=== PATIENT | female | born 1995 | race Hispanic/Latino ===

== ENCOUNTER 2024-03-04 18:04 | Emergency (ER) | payer OTHER, SELFPAY ==
[2024-03-04 18:08] VITALS: BP 112/83
[2024-03-04 18:26] LABS: % Basophils 0.8 % (0-2); % Eosinophils 4.7 % (0-6); % Immature Granulocytes 0.3 % (0-0.5); % Lymphocytes 34.2 % (20.5-51.1); % Monocytes 5.1 % (1.7-9.3); % Neutrophils 54.9 % (42.2-75.2); Absolute Basophils 0.1 10^3/uL (0-0.2); Absolute Eosinophils 0.5 10^3/uL (0-0.7); Absolute Lymphocytes 3.8 10^3/uL (1.2-3.4); Absolute Monocytes 0.6 10^3/uL (0.1-0.6); Absolute Neutrophils 6.1 10^3/uL (1.4-6.5); Hematocrit 39.1 % (37.0-47.0); Hemoglobin 13.7 g/dL (12.0-16.0); Mean Corpuscular Hgb 29.2 pg (27.0-31.0); Mean Corpuscular Volume 83.4 fL (81.0-99.0); Nucleated Red Blood Cells % 0 %; Platelet Count 393 10^3/uL (130-400); Red Blood Cell Count 4.69 10^6/uL (4.20-5.40); Red Cell Dist. Width 12.1 % (11.5-14.5); White Blood Cell Count 11.1 10^3/uL (4.8-10.8)
[2024-03-04 18:41] LABS: ALT (SGPT) 27 U/L (0-35); AST (SGOT) 26 U/L (14-36); Albumin 4.7 g/dl (3.5-5.0); Alkaline Phosphatase 104 U/L (38-126); Blood Urea Nitrogen 12 mg/dl (7-17); Calcium 10.1 mg/dl (8.4-10.2); Carbon Dioxide 23 mmol/L (22-30); Chloride 100 mmol/L (98-107); Glucose 102 mg/dl (70-99); Potassium 3.5 mmol/L (3.5-5.1); Sodium 141 mmol/L (135-145); Total Bilirubin 1.4 mg/dl (0.2-1.3); eGFR > 60.00
[2024-03-04 18:51] LABS: Troponin I < 0.012 ng/ml
--- NOTE | 2024-03-04 20:36 | EDRN ---
injury or fall. No SOB. Pt has hx of asthma. Pt took no pain relievers
[2024-03-04 20:43] VITALS: BP 113/72
[2024-03-04 21:00] VITALS: BP 102/70
--- NOTE | 2024-03-04 21:42 | ED.GENMED ---
History of Present Illness
General
Chief Complaint: Chest Problem
Source: patient
Exam Limitations: none
Time Seen by Provider: 03/04/24 20:54
History of Present Illness
History of Present Illness:
This is a 28 year old female that comes in with c/o left sided rib pain. States that 2 weeks ago she started with this left sided chest pain with breathing. States that she thought this was her asthma and in a couple of days she felt better. Then
Monday night she started with this left sided lower rib pain. States that it feels like a burning under her breast. States that today she went to and they felt this could be Shingles. Denies any falls or injury. States that she is SOB. Denies
fever, chills, chest pain, abd pain, nausea, vomiting, diarrhea, headache, dizziness, urinary burning.
Past History
Past History
ED Past Medical History: Asthma, GERD, Other and Other (Asthma, mild glucose intolerance)
ED Past Surgical History: None and Other (Hernia, Adenoidectomy, Oral surgery)
Social History
Tobacco: Non-smoker
Alcohol: None
Living: with family
Family History
Family History: Other (Diabetes in her grandmother, mother with thyroid disease)
Review of Systems
Review of Systems
All Other Systems: ROS reviewed and negative except as documented in HPI and ROS
Constitutional: Reports no symptoms; Denies fever or chills
EENT: Reports no symptoms
Respiratory: Reports trouble breathing and other (Left lower rib burning. ); Denies cough
Cardiac: Reports no symptoms; Denies chest pain
ABD/GI: Reports no symptoms; Denies abdominal pain, nausea, vomiting or diarrhea
: Reports no symptoms; Denies dysuria, frequency or urgency
Musculoskeletal: Reports no symptoms
Skin: Reports no symptoms
Neurological: Reports no symptoms; Denies dizzy or headache
Psychiatric: Reports no symptoms
Phy Exam
General Physical Exam
General Presentation: well appearing and no apparent distress
General age: appears stated age
General Skin: warm and dry
General Habitus: normal
General Mental: alert
General Hydration: appears well hydrated
ENT Exam
ENT Exam: TM's normal, pharynx normal and neck supple
Eye Exam
Eye Exam: EOMI
Cardiovascular Exam
Cardiovascular Exam: regular rate/rhythm, no edema, no murmur and normal peripheral pulses
Pulmonary Exam
Pulmonary Exam: lungs clear, no respiratory distress, no rales, chest non tender, no crackles, no rhonchi, no wheezing and no cough
Gastrointestinal Exam
Gastrointestinal Exam: normal bowel sounds, non tender, soft, no organomegaly, no pulsatile mass and non distended
Musculoskeletal Exam
Musculoskeletal Exam: full ROM, no edema and other (Left lower rib tenderness with palpation)
Skin Exam
Skin Exam: normal color, warm/dry, no rash and no petechia
Psychiatric Exam
Psychiatric Exam: normal mood/affect
Course
Orders/Labs/Results
Orders:
Orders
03/04/24 18:12
ECG [Electrocardiogram (*1)] Urgent
Reason for Study: Chest Pain
EKG- Treatment ONCE
03/04/24 18:17
Complete Blood Count/With Diff Urgent
Comprehensive Metabolic Panel Urgent
Troponin I Urgent
03/04/24 21:42
CR Chest - 2 Views Urgent
Comment:
Reason For Exam: lEFT SIDED RIB PAIN
03/04/24 22:50
D-Dimer Urgent
Abnormal Lab Results
03/04/24
18:17
WBC 11.1 H 10^3/uL
(4.8-10.8)
Absolute Lymphs (auto) 3.8 H 10^3/uL
(1.2-3.4)
Glucose 102 H mg/dl
(70-99)
Total Bilirubin 1.4 H mg/dl
(0.2-1.3)
03/04/24 18:17
03/04/24 18:17
WBC slightly elevated. Glucose nonfasting. Total miryam very slightly elevated. Troponin <0.012
D-dimer 0.37
Vital Signs
Initial and Last Documented VS:
Initial Vital Signs
Temp Pulse Resp BP Pulse Ox
98.4 F 96 16 112/83 98
03/04/24 18:08 03/04/24 18:08 03/04/24 18:08 03/04/24 18:08 03/04/24 18:08
Last Documented Vital Signs
Temp Pulse Resp BP Pulse Ox
98.4 F 96 16 112/83 98
03/04/24 18:08 03/04/24 18:08 03/04/24 18:08 03/04/24 18:08 03/04/24 20:33
MDM/Problems Addressed
Differential Diagnosis Includes:
Shingles, coronary syndrome.
MDM/Problems Addressed:
This is a 28 year old female that comes in with c/o left rib pain. States that this is a burning. Patient went to and was told that this may be shingles.
Will get labs. Chest x-ray. Explained to patient that at this time there is no rash there but she is tender with palpation. Sometimes you get the pain before the rash appears. Patient will need to follow up with the family doctor.
back into see patient. Explained that her Chest x-ray is normal along with the D-dimer. This may be just Musculoskeletal . Patient to use Tylenol or Ibuprofen for pain. Follow up with the family doctor. Return with any concerns.
Chronic conditions affecting care:
NA
Acute Exacerbation and/or Progression of Chronic Illness:
NA
*Radiology
Radiology exam reviewed: preliminary read by ED provider (Chest-Negative for active disease)
*Pulse Oximetry
Patient hypoxic: no
*EKG
Interpreted by ED Provider?: Yes
Heart Rate: 95
Rate: normal
Rhythm: sinus
[place]: normal axis
Interval: normal interval
QRS Pattern: normal QRS
Ischemia: no ischemia
*Electronics Manufacturer Interpretation
Rate: normal
Heart Rate: 86
Rhythm: sinus
*Critical Care Note
Total Time (30-74mins, 75-104mins- exclusive of procedures): Not Applicable
ED Attending Note
-
Portions of this chart may have been created with voice recognition software.� Occasional wrong word or��sound alike� substitutions may have occurred due to the inherent limitations of voice recognition software.
Discharge Plan
Departure
Patient Disposition: Home (Routine Discharge)
Date of Disposition: 03/05/24
Time of Disposition: 00:14
Patient with high blood pressure during this ER visit?: No
Condition: Good
Covid-19: Not Applicable
Discharge Problem:
Rib pain on left side
Instructions: Musculoskeletal Pain
Prescriptions:
No Action
metformin 500 MG tablet
250 mg PO DAILY
Referrals:
Juarez Lo DO [Family Provider] - Call in 1-3 days for appt
Activity Restrictions/Additional Instructions:
As discussed, your chest x-ray is normal and the D-dimer which is marker for Pulmonary embolism is negative. This may be musculoskeletal pain. However, if you would develop any rash you will need to see the family doctor or return to the emergency
room. You may take Tylenol 1000mg every 6 hours for pain and alternate this with Ibuprofen 600mg every 6 hours with food. Follow up with the family doctor for recheck. IF YOU HAVE INCREASED OR CHANGING PAIN, OR YOU HAVE ANY OTHER CONCERNS PLEASE
RETURN TO THE EMERGENCY ROOM.
Interventions
Interventions:
*Risk Screen - Suicide Last Done: 03/04/24 20:33
*General Assessment Last Done: 03/04/24 20:33
*Neglect/Abuse Screening Last Done: 03/04/24 20:33
ED- Fall Risk Assessment Last Done: 09/09/24 20:33
*ED COVID-19 Vaccine History Last Done: 03/04/24 20:33
ED- Cardiac Assessment Last Done: 03/04/24 20:33
ED- Pulmonary Assessment Last Done: 03/04/24 20:33
Discharge Date and Time
Print Language: ALBANIAN
[2024-03-04 22:00] VITALS: BP 109/64
[2024-03-04 23:11] LABS: D-Dimer 0.37 ug/mlFEU (0.00-0.50)
[2024-03-05 00:25] VITALS: BP 115/71
== END 2024-03-05 00:25 | disposition home or self-care (01) ==
LOC: EMR 18:04
PROVIDERS: Clinical Nurse Specialist Family Health; Student in an Organized Health Care Education/Training Program; EMERGENCY PHYSICIAN Student in an Organized Health Care Education/Training Program; FAMILY PHYSICIAN Anesthesiology
DX: R07.81 Pleurodynia (principal); J45.909 Unspecified asthma, uncomplicated; K21.9 Gastro-esophageal reflux disease without esophagitis; E74.39 Other disorders of intestinal carbohydrate absorption; Z88.8 Allergy status to other drugs, medicaments and biological substances
CPT/HCPCS: 99283; 71046; 80053; 84484; 85025; 85379; 93005

== ENCOUNTER 2025-01-01 18:54 | Emergency (ER) | payer BC, SELFPAY ==
[2025-01-01 18:58] VITALS: BP 144/84
[2025-01-01 19:45] LABS: Urine Character Clear (Clear)
[2025-01-01 19:50] LABS: Hematocrit 40.4 % (37.0-47.0); Hemoglobin 14.1 g/dL (12.0-16.0); Mean Corp Hgb Conc. 34.9 g/dL (33.0-37.0); Mean Corpuscular Volume 83.5 fL (81.0-99.0); Nucleated Red Blood Cells % 0 %; Platelet Count 325 10^3/uL (130-400); Red Cell Dist. Width 11.9 % (11.5-14.5)
[2025-01-01 20:04] LABS: ALT (SGPT) 43 U/L (0-35); AST (SGOT) 37 U/L (14-36); Albumin 5.0 g/dl (3.5-5.0); Alkaline Phosphatase 94 U/L (38-126); Blood Urea Nitrogen 16 mg/dl (7-17); Calcium 10.1 mg/dl (8.4-10.2); Carbon Dioxide 25 mmol/L (22-30); Chloride 103 mmol/L (98-107); Glucose 92 mg/dl (70-99); Potassium 4.0 mmol/L (3.5-5.1); Sodium 136 mmol/L (135-145); Total Protein 8.5 g/dl (6.3-8.2); eGFR > 60.00
[2025-01-01 20:05] LABS: HCG, Serum Qualitative Screen Negative
[2025-01-01 21:37] VITALS: BP 122/80
[2025-01-01 22:29] VITALS: BP 117/72
[2025-01-01 22:33] VITALS: BP 117/72
[2025-01-01 23:56] VITALS: BP 116/70; BP 123/84; BP 126/80; PULSE 69; PULSE 79; PULSE 90
--- NOTE | 2025-01-02 00:01 | ED.GENMED ---
History of Present Illness
General
Chief Complaint: Dizziness
Source: patient
Exam Limitations: none
Time Seen by Provider: 01/01/25 23:40
Nursing documentation reviewed up to this point in time: agreed with
History of Present Illness
History of Present Illness:
see MDM
Past History
Past History
ED Past Medical History: Asthma, GERD, Other and Other (Asthma, mild glucose intolerance)
ED Past Surgical History: None and Other (Hernia, Adenoidectomy, Oral surgery)
Social History
Tobacco: Non-smoker
Alcohol: None
Living: with family
Family History
Family History: Other (Diabetes in her grandmother, mother with thyroid disease)
Review of Systems
Review of Systems
Allergies reviewed?: Yes
All Other Systems: Not applicable
Phy Exam
Physical Exam
Physical Exam:
GENERAL: Alert , in no apparent distress, very well appearing
HEAD: NCAT
EYE: pupils equal and reactive, no nystagmus, no photophobia
NECK: Supple,full rom, nontender
ENT: o/p clr, mmm.
CARDIAC: Regular rate and rhythm . no edema
LUNGS: Clear breath sounds bilaterally, no acute respiratory distress, no wheezes/rales/rhonchi
ABDOMEN: Soft, without focal tenderness, no r/g, no cvat
NEUROLOGICAL: Alert and orientedx 4, cn intact, no facial asymmetry, 5/5 strength in UE/LE, sensation intact, romberg neg, ambulates without assistance, neg pronator drift
SKIN: Warm and dry, skin intact.
MUSCULOSKELETAL: No edema, well perfused.
PSYCH: Normal and appropriate interaction.
Course
Orders/Labs/Results
Orders:
Orders
01/01/25 19:06
ECG [Electrocardiogram (*1)] Urgent
Reason for Study: Vertigo / Dizzy
Cardiology Consult: Unknown
01/01/25 19:07
EKG- Treatment ONCE
Test Result ONCE
01/01/25 19:10
CT Head & Neck Angio W/wo IV Urgent
Comment:
Reason For Exam: dizzy, left facial tingling, no period since october
01/01/25 19:33
Complete Blood Count/With Diff Urgent
Comprehensive Metabolic Panel Urgent
HCG, Serum Qualitative Screen Urgent
Urinalysis Reflex To Culture Urgent
Date Specimen was Collected: 01/01/25
Time Specimen was Collected: 19:07
01/01/25 23:56
Orthostatic VS- Treatment ONCE
COVID-19 Antigen Urgent
Source: Nasal Swab
01/02/25 00:51
Meclizine [Antivert] 25 mg PO NOW STA
Abnormal Lab Results
01/01/25
19:33
WBC 11.6 H 10^3/uL
(4.8-10.8)
Absolute Lymphs (auto) 4.1 H 10^3/uL
(1.2-3.4)
Absolute Monos (auto) 0.8 H 10^3/uL
(0.1-0.6)
AST 37 H U/L
(14-36)
ALT 43 H U/L
(0-35)
Total Protein 8.5 H g/dl
(6.3-8.2)
01/01/25 19:33
01/01/25 19:33
Vital Signs
Initial and Last Documented VS:
Initial Vital Signs
Temp Pulse Resp BP Pulse Ox
37.2 C 94 20 144/84 100
01/01/25 18:58 01/01/25 18:58 01/01/25 18:58 01/01/25 18:58 01/01/25 18:58
Last Documented Vital Signs
Temp Pulse Resp BP Pulse Ox
36.6 C 80 18 103/63 96
01/01/25 21:37 01/01/25 22:33 01/01/25 22:33 01/02/25 00:58 01/02/25 00:05
MDM/Problems Addressed
Differential Diagnosis Includes:
see MDM
MDM/Problems Addressed:
Note:
CHIEF COMPLAINT(S)
Dizziness and menstrual irregularity.
HISTORY OF PRESENT ILLNESS
The patient is a 29-year-old female who presents with dizziness, particularly notable when changing the position of her head x 2 days, and an absence of menstrual cycles since October. The symptoms are most pronounced with activities such as going down
to pick something up, putting her head down, or turning her head. The patient has not experienced vertigo before. She reports a headache on Monday which was mild; took tylenol.
then las tnight while in bed she 'thinks' she felt some tingling in her L face (cheek) and R head. it was brief and resolved and hasn't recurred.
went to and was sent here due to those symptoms
has not taken a COVID test and has no known contact with sick individuals. Nausea occurs with dizziness, which she characterizes as positional. She denies any regular use of control and mentions using a negative test recently. There
is a past use of Metformin and Ozempic due to early diabetes, but the patient is currently not on medication.
PHYSICAL EXAM
- Neurological examination is focused on assessment for vertigo.
- The Tatianna-Hallpike maneuver was conducted with a subsequent report of dizziness during the test but no immediate nystagmus was noted.
- Strength was tested: the patient was able to hold arms up against resistance, shrug shoulders, and perform tasks with coordination.
- Nursing notes reviewed and vital signs reviewed.
PROBLEM LIST
- Acute dizziness
- Menstrual irregularity
PLAN
- Await the results of a computed tomography scan and review once available.
- The blood work results are normal.
- Prescribe Meclizine for dizziness, to be taken three times a day for two days, with the potential side effect of drowsiness, so caution is advised if driving.
- Referral to Ear, Nose, and Throat for further evaluation and possible therapy if symptoms persist.
- Recommend taking a COVID test to rule out any contribution to symptoms.
DIFFERENTIAL DIAGNOSIS
The Differential Diagnosis includes, in no particular order and is not limited to:
- Benign Paroxysmal Positional Vertigo (BPPV)
- Vestibular neuritis
- Labyrinthitis
- Menieres disease
- Vestibular migraine
- Orthostatic hypotension
- Transient ischemic attack
- Inner ear infection
- Multiple sclerosis
- Allergic rhinitis affecting the ear function
Note:
Disposition:
SUMMARY OF ENCOUNTER
The patient is a 29-year-old female who presented with symptoms of positional dizziness over the past two days, characterized by a spinning sensation upon head movement, notably when turning or bending forward. She also experienced a transient
episode of facial numbness that resolved spontaneously. Examination revealed mild dizziness during the Tatianna-Hallpike maneuver to the right, though without significant nystagmus. She had stable vital signs and was orthostatically negative. Her
laboratory tests showed unremarkable results aside from a mild elevation of transaminases, potentially indicative of a viral syndrome. A CTA of the head and neck was negative, and tests for both COVID-19 and were also negative. The patient
was seen for further neurological assessment, and a diagnosis of Benign Paroxysmal Positional Vertigo (BPPV) was considered. Meclizine was prescribed for symptom management, with a referral to ENT for follow-up care.
ASSESSMENT
The presentation is consistent with Benign Paroxysmal Positional Vertigo (BPPV), given the positional nature of the dizziness and mild findings on examination.
PLAN
The patient is to be treated for BPPV with Meclizine for symptomatic management and will follow up with an Ear, Nose, and Throat specialist for further evaluation and possible therapy if symptoms persist.
INDEPENDENT REVIEW OF LABS AND INTERPRETATION OF TESTS
- My independent review of labs indicates a mild elevation of transaminases, which could align with a viral syndrome.
- My independent review of the CTA head and neck shows no abnormalities.
- My independent review of the COVID-19 test is negative.
- My independent review of the test is negative.
PATIENT EDUCATION AND COUNSELING
The patient was informed about the diagnosis of BPPV, the benign nature of the condition, and the typical fluctuation of symptoms. Instructions on the use of Meclizine and potential side effects, such as drowsiness, were provided, along with advice
to be cautious when driving.
FOLLOW-UP INSTRUCTIONS
The patient is advised to follow up with an ENT specialist to ensure appropriate management of the condition.
MEDICATION RECONCILIATION
- Meclizine was prescribed for dizziness management.
MEDICAL DECISION MAKING
- Number and Complexity of Problems Addressed: Chronic conditions affecting care include early diabetes. Differential diagnosis considered: Benign Paroxysmal Positional Vertigo (BPPV), Vestibular neuritis, Labyrinthitis, Meniere�s disease,
Vestibular migraine, Orthostatic hypotension, Transient ischemic attack, Inner ear infection, Multiple sclerosis, Allergic rhinitis affecting ear function.
- Data:
Category 1: An independent review of labs and CTA head and neck was conducted, showing mild transaminase elevation and no abnormalities in imaging.
Category 2: None.
Category 3: None.
- Risk: Prescription medication was prescribed (Meclizine). Consideration of Admission/Observation: Escalation of care including admission/observation was considered given the complexity and risk of the patients presenting complaint, exam findings,
and/or their underlying comorbidities. However, ultimately I feel the patient is safe for outpatient management with close follow-up. Reasoning: Work-up reassuring, does not reveal any acute life/organ threatening processes, patients symptoms
well-controlled upon reevaluation, reexamination is reassuring, vitals are stable, patient agreeable with discharge, reliable for follow-up.
DIAGNOSIS
- Benign Paroxysmal Positional Vertigo (BPPV) (ICD-10: H81.1).
*Pulse Oximetry
SaO2: 99
Oxygen Mode of Delivery: Room air (99)
Patient hypoxic: no (99)
*Critical Care Note
Total Time (30-74mins, 75-104mins- exclusive of procedures): Not Applicable
ED Attending Note
-
Portions of this chart may have been created with voice recognition software.� Occasional wrong word or��sound alike� substitutions may have occurred due to the inherent limitations of voice recognition software.
Discharge Plan
Departure
Patient Disposition: Home (Routine Discharge)
Date of Disposition: 01/02/25
Time of Disposition: 00:44
Patient with high blood pressure during this ER visit?: No
Condition: Fair
Covid-19: Negative COVID-19
Discharge Problem:
Vertigo
Instructions: Vertigo (a Type of Dizziness) (DC)
Prescriptions:
New
meclizine 25 mg tablet
25 mg PO TID PRN (Reason: dizziness) Qty: 12 0RF
No Action
metformin 500 MG tablet
250 mg PO DAILY
Referrals:
Reji Cintron MD [Active, ENT] - Follow up in 5-7 days
Juarez Lo DO [Family Provider, Family Practice]
Stand Alone Forms: Return to Work
Activity Restrictions/Additional Instructions:
Your symptoms could be due to a viral illness, it is also possible that you could have vertigo. Your CAT scan did not show any abnormalities. Your blood work was reassuring. Your test was negative. Certainly if you continue to mess up.
You should take another test. Use protection for now.
For the vertigo try to avoid sudden movements and bending over
take meclizine 25 mg 3 times a day 2-3 days
this can make you drowsy
follow up with an ear nose and throat for persistent symptoms
return for any concerns.
Interventions
Interventions:
*Risk Screen - Suicide Last Done: 01/01/25 18:58
*General Assessment Last Done: 01/01/25 18:58
*Neglect/Abuse Screening Last Done: 01/01/25 18:58
*ED- Fall Risk Assessment Last Done: 01/01/25 18:58
*ED COVID-19 Vaccine History Last Done: 01/01/25 18:58
*Nursing Disposition Last Done: 01/02/25 01:30
ED- Neurological Assessment Last Done: 01/01/25 22:52
ED- Cardiac Assessment Last Done: 01/02/25 01:30
ED Swallowing Screen Last Done: 01/01/25 22:52
Discharge Date and Time
Discharge Date/Time: 01/02/25 01:30
Print Language: FRENCH
[2025-01-02 00:02] VITALS: BP 116/70
[2025-01-02 00:03] VITALS: BP 123/84
[2025-01-02 00:04] VITALS: BP 126/80
[2025-01-02 00:22] LABS: COVID-19 Antigen Negative (Negative)
[2025-01-02 00:58] VITALS: BP 103/63
[2025-01-02] MEDS: ANTIVERT 25 MG PO (00:58)
== END 2025-01-02 01:30 | disposition home or self-care (01) ==
LOC: EMR 18:54
PROVIDERS: Physician Assistant; EMERGENCY PHYSICIAN Student in an Organized Health Care Education/Training Program; FAMILY PHYSICIAN Anesthesiology
DX: R42 Dizziness and giddiness (principal); R20.2 Paresthesia of skin; Z11.52 Encounter for screening for COVID-19; J45.909 Unspecified asthma, uncomplicated; K21.9 Gastro-esophageal reflux disease without esophagitis; E74.39 Other disorders of intestinal carbohydrate absorption; Z88.8 Allergy status to other drugs, medicaments and biological substances
CPT/HCPCS: 99284; 70496; 70498; 80053; 81003; 84703; 85025; 87811; 93005; Q9967